=== PATIENT | female | born 1965 | race Caucasian/White ===

== ENCOUNTER → 2016-10-20 | Outpatient (CLI) | payer BC ==
--- NOTE | 2016-10-20 14:32 | RAD ---
DATE: 10/20/2016 EXAM: MAMMO STAR SCREENING BILATERAL HISTORY: Routine screening COMPARISON: 08/13/2015 This study was interpreted with the benefit of Computerized Aided Detection (CAD). FINDINGS: 2-D and 3-D tomosynthesis imaging was performed in CC and MLO projections. The breasts are primarily fatty replaced. No new or enlarging breast densities are seen. No suspicious microcalcifications are evident. IMPRESSION: Stable mammograms without evidence of malignancy. BI-RADS CATEGORY: 2 BENIGN FINDING(S) RECOMMENDED FOLLOW-UP: 12M 12 MONTH FOLLOW-UP PQRS compliance statement: Patient information was entered into a reminder system with a target due date for the next mammogram. Mammography is a sensitive method for finding small breast cancers, but it does not detect them all and is not a substitute for careful clinical examination. A negative mammogram does not negate a clinically suspicious finding and should not result in delay in biopsying a clinically suspicious abnormality. "Our facility is accredited by the [employer]ography [employer]."
== END | disposition home or self-care (01) ==
LOC: MAMMO 13:30
PROVIDERS: ATTEND General Practice
DX: Z12.31 Encounter for screening mammogram for malignant neoplasm of breast (principal)
CPT/HCPCS: 77063; G0202; 77067

== ENCOUNTER → 2016-10-24 | Outpatient (CLI) | payer BC ==
--- NOTE | 2016-10-24 15:55 | RAD ---
CT of the lumbar spine without contrast, 10/24/2016: History: Low back pain radiating into the left hip. Noncontrast scans were obtained with multiplanar reconstructions produced. No fracture or destructive bony lesion is seen. No significant posterior disc bulge or protrusion is seen at L1-2 and L2-3. There are minimal degenerative changes involving the facet joints at these levels. The central spinal canal and neural foramina are well maintained at these levels. At L3-4 there is moderate hypertrophic degenerative change involving the facet joints. There is moderate broad-based posterior disc bulging, more so on the right. There is a prominent posterior spur near the midline in association with this disc bulge. The combination of findings is causing mild narrowing of the central spinal canal and mild inferior foraminal encroachment bilaterally. At L4-5 there is a larger posterior spur in association with broad-based posterior disc bulging. There are extensive degenerative changes involving the facet joints with vacuum disc phenomena and posterior ligamentous thickening. The combination of findings is causing moderate central spinal stenosis and moderately severe bilateral foraminal encroachment. The thecal sac measures approximately 7 mm in AP diameter at the midline. At L5-S1 there are also large posterior spurs in association with broad-based posterior disc bulging. There are moderate degenerative changes involving the facet joints with posterior ligamentous thickening. The combination of findings is causing moderate central spinal stenosis with the thecal sac measuring approximately 6 mm in AP diameter at the midline. There is also moderate bilateral foraminal encroachment due to the spurs. IMPRESSION: 1. Multilevel hypertrophic degenerative change as described above. 2. Large posterior spurs in conjunction with extensive facet joint arthropathy is producing moderate central spinal stenosis and moderate to severe bilateral foraminal encroachment bilaterally at L4-5 and L5-S1. 3. Mild central spinal stenosis at L3-4. PQRS Compliance Statement: One or more of the following individualized dose reduction techniques were utilized for this examination: 1. Automated exposure control 2. Adjustment of the mA and/or kV according to patient size 3. Use of iterative reconstruction technique
== END | disposition home or self-care (01) ==
LOC: CT 13:29
PROVIDERS: ATTEND General Practice
DX: M47.896 Other spondylosis, lumbar region (principal); M48.07 Spinal stenosis, lumbosacral region; M54.42 Lumbago with sciatica, left side
CPT/HCPCS: 72131

== ENCOUNTER → 2016-12-14 | Outpatient (CLI) | payer BC ==
--- NOTE | 2016-12-14 09:43 | RAD ---
Pelvis with left hip, 2 views, 12/14/2016: History: Pain No fracture or dislocation is identified. There is moderate narrowing of the left hip joint with subchondral sclerosis and marginal spurring. The right hip joint is well-maintained with only minimal marginal spurring. IMPRESSION: 1. Moderate osteoarthritis at the left hip joint. 2. No acute abnormality is detected.
== END | disposition home or self-care (01) ==
LOC: DXRAD 08:02
PROVIDERS: ATTEND Family Medicine
DX: M16.12 Unilateral primary osteoarthritis, left hip (principal)
CPT/HCPCS: 73502

== ENCOUNTER → 2017-02-14 | Outpatient (CLI) | payer BC ==
[2017-02-14 14:23] LABS: BASO # 0.1 x10^3/uL (0.0-0.2); BASO % 1 % (0-3); EOS # 0.2 x10^3/uL (0.0-0.7); EOS % 2 % (0-3); HEMATOCRIT 37.8 % (36.0-47.0); HEMOGLOBIN 12.7 g/dL (12.0-15.5); LYMPH # 2.5 x10^3/uL (1.0-4.8); LYMPH % 30 % (24-48); MEAN CORPUSCULAR HEMOGLOBIN 31 pg (25-35); MEAN CORPUSCULAR HGB CONC 34 g/dL (31-37); MEAN CORPUSCULAR VOLUME 92 fL (79-100); MONO # 0.8 x10^3/uL (0.0-1.1); MONO % 10 % (0-9); NEUT # 4.8 x10^3uL (1.8-7.7); NEUT % 58 % (31-73); PLATELET COUNT 284 x10^3/uL (140-400); RED CELL DISTRIBUTION WIDTH 13.4 % (11.5-14.5); WHITE BLOOD COUNT 8.4 x10^3/uL (4.0-11.0)
[2017-02-14 14:32] LABS: BACTERIA,URINE 0 /HPF (0-FEW); BILIRUBIN,URINE NEG (NEG); CLARITY,URINE CLEAR; COLOR,URINE YELLOW; GLUCOSE,URINE NEG (NEG); NITRITE,URINE NEG (NEG); RBC,URINE 0 /HPF (0-2); SQUAMOUS EPITHELIAL CELL,UR OCC /LPF; UROBILINOGEN,URINE 0.2 mg/dL (0.2 mg/dL); WBC,URINE RARE /HPF (0-4)
== END | disposition home or self-care (01) ==
LOC: LAB 13:41
PROVIDERS: ATTEND Anesthesiology Pain Medicine
DX: Z01.818 Encounter for other preprocedural examination (principal)
CPT/HCPCS: 36415; 81001; 85025

== ENCOUNTER 2017-05-04 18:11 | Emergency (ER) | payer BC ==
[~2017-05-04] VITALS: Ht 162.6 cm; Wt 100.0 kg
[2017-05-04 19:10] VITALS: BP 138/85
[2017-05-04] MEDS ORDERED: PHEN-318 PO (19:19)
[2017-05-04] MEDS ORDERED: NITR100C62 PO (19:19)
--- NOTE | 2017-05-04 19:19 | PHYS DOC ---
Past History Past Medical History: UTI Additional Past Medical Histor: current UTIs Past Surgical History: Appendectomy, , Hip Replacement, Hysterectomy Smoking: Quit Greater Than 1 Year Alcohol Use: Occasionally Drug Use: None Adult General Chief Complaint Chief Complaint: URINARY FREQUENCY [facility] This is a pleasant 52-year-old female with a history of recurrent UTIs who presents with dysuria urgency or frequency that began earlier today. She's had a UTI recently with the last several months requiring Pyridium and antibiotics. She is not complaining of any lower back pain, fevers, chills, nausea, vomiting , diarrhea she denies any copious vaginal discharge or bleeding. She's had a hysterectomy and oophorectomy and appendectomy. She just recently had hip surgery within the last several months. She denies any rash joint pain, travel outside the country or trauma. Her pain is improved with Pyridium taken at home several hours prior to arrival Review of Systems Review of Systems Constitutional: Denies fever or chills [] Eyes: Denies change in visual acuity, redness, or eye pain [] HENT: Denies nasal congestion or sore throat [] Respiratory: Denies cough or shortness of breath [] Cardiovascular: No additional information not addressed in HPI [] GI: Denies nausea, vomiting, bloody stools or diarrhea patient does have some abdominal pain described as crampy over the suprapubic region.[] : Patient does have dysuria urgency or frequency without hematuria Musculoskeletal: Denies back pain she does complain of joint pain over the hip temperatures were placed. Integument: Denies rash or skin lesions [] Neurologic: Denies headache, focal weakness or sensory changes [] All other systems were reviewed and found to be within normal limits, except as documented in this note. Allergies Allergies Allergies Coded Allergies Type Severity Reaction Last Updated Verified codeine Allergy Unknown 05/04/17 Yes Physical Exam Physical Exam Constitutional: Well developed, well nourished, no acute distress, non-toxic appearance. [] Cardiovascular:Heart rate regular rhythm, no murmur [] Lungs & Thorax: Bilateral breath sounds clear to auscultation [] Abdomen: Bowel sounds normal, soft, no tenderness, no masses, no pulsatile masses. [] Skin: Warm, dry, no erythema, no rash. [] Back: No tenderness, no CVA tenderness. [] Extremities: No tenderness, no cyanosis, no clubbing, ROM intact, no edema. [] Neurologic: Alert and oriented X 3,] Psychologic: Affect normal, judgement normal, mood normal. [] Current Patient Data Lab Results Laboratory Tests Test 05/04/17 18:36 Urine Collection Type Unknown Urine Color Yellow Urine Clarity Hazy Urine pH 6.0 Urine Specific [place] 1.020 Urine Protein Neg (NEG-TRACE) Urine Glucose (UA) Neg mg/dL (NEG) Urine Ketones (Stick) Trace mg/dL (NEG) Urine Blood Trace (NEG) Urine Nitrite Pos (NEG) Urine Bilirubin Neg (NEG) Urine Urobilinogen Dipstick 0.2 mg/dL (0.2 mg/dL) Urine Leukocyte Esterase Small (NEG) Urine RBC 3-5 /HPF (0-2) Urine WBC >40 /HPF (0-4) Urine Squamous Epithelial Cells Few /LPF Urine Bacteria 0 /HPF (0-FEW) Urine Yeast Present /HPF EKG EKG [] Radiology/Procedures Radiology/Procedures [] Course & Med Decision Making Course & Med Decision Making Pertinent Labs and Imaging studies reviewed. (See chart for details) []My abdominal pain differential includes but not limited to ectopic , UTI, pyonephritis, cholecystitis, cholelithiasis, pancreatitis, appendicitis, small bowel obstruction, large bowel obstruction, diverticulosis, Diverticulum, intussusception, volvulus, irritable bowel disease, Crohn's or ulcerative colitis, considered upon arrival Clearly sHe is not having a with no uterus or ovaries but UTIs possible. Since urinalysis clearly showed signs of infection. She'll be provided a course of Macrobid and Pyridium and asked to follow-up with her [employer] for urogynecology evaluation. My concern recalls around the fact she's had 3 infections and less than 6 months she may have some structural problems with her bladder that may require surgical intervention to help reduce the frequency of infections. At this point I do not believe she get a renal abscess Dragon Disclaimer Dragon Disclaimer This electronic medical record was generated, in whole or in part, using a voice recognition dictation system. Departure Departure: Impression: Primary Impression: Dysuria Additional Impression: UTI (urinary tract infection) Disposition: HOME, SELF-CARE Condition: STABLE Referrals: JOSEPH HERNADEZ DO (PCP) Patient Instructions: Urinary Frequency, Urinary Tract Infection Additional Instructions: discharge: I've spoken with the patient and/or caregivers. I've explained the patient's condition, diagnosis and treatment plan based on information available to me at this time. I've answered the patient's and/or caregivers questions and addressed any concerns. The patient and/or caregivers have a good understanding the patient's diagnosis, condition and treatment plan as can be expected at this point. Vital signs have been stabilized. The patient's condition is stable for discharge from the emergency department. The patient will pursue further outpatient evaluation with her primary care provider or other designated consulting physician as outlined in the discharge instructions. Patient and/or caregivers are agreeable to this plan of care and follow-up instructions have been explained in detail. The patient and/or caregivers have received these instructions in written format and expressed understanding of these discharge instructions. The patient and her caregivers are aware that if any significant change in condition or worsening of symptoms should prompt him to immediately return to this of the closest emergency department. If an emergent department is not readily available I would encourage him to call 911. Scripts Phenazopyridine Hcl (PYRIDIUM) 200 Mg Tablet 200 MG PO TID for 5 Days, #15 TAB Prov: MELANI HARRISON MD 05/04/17 Nitrofurantoin Monohyd/M-Cryst (MACROBID 100 MG CAPSULE) 100 Mg Capsule 1 CAP PO BID, #20 CAP Prov: MELANI HARRISON MD 05/04/17 Problem Qualifiers MELANI HARRISON MD May 04, 2017 19:19
[2017-05-04 19:32] LABS: BILIRUBIN,URINE NEG (NEG); CLARITY,URINE HAZY; COLOR,URINE YELLOW; GLUCOSE,URINE NEG (NEG); NITRITE,URINE POS (NEG); UROBILINOGEN,URINE 0.2 mg/dL (0.2 mg/dL)
[2017-05-04 19:33] LABS: BACTERIA,URINE 0 /HPF (0-FEW); SQUAMOUS EPITHELIAL CELL,UR FEW /LPF; WBC,URINE >40 /HPF (0-4)
[2017-05-04 19:34] LABS: YEAST,URINE PRESENT /HPF
[2017-05-04] MEDS ORDERED: NITROFURANTOIN MONOHYD/M-CRYST 100 MG CAPSULE. PO ONE ×2 (19:56→20:15)
== END 2017-05-04 20:00 | disposition home or self-care (01) ==
LOC: ER 18:11
DX: N39.0 Urinary tract infection, site not specified (principal); Z90.710 Acquired absence of both cervix and uterus; Z90.721 Acquired absence of ovaries, unilateral; Z90.49 Acquired absence of other specified parts of digestive tract; Z87.891 Personal history of nicotine dependence; Z88.5 Allergy status to narcotic agent
CPT/HCPCS: 81001; 87086; 99284

== ENCOUNTER 2017-08-02 00:22 | Emergency (ER) | payer BC ==
[~2017-08-02] VITALS: Ht 162.6 cm; Wt 102.1 kg
[~2017-08-02 00:22] MED LIST: NITR100C62 PO; PHEN-318 PO
[2017-08-02 01:08] LABS: BACTERIA,URINE MANY /HPF (0-FEW); BILIRUBIN,URINE NEG (NEG); CLARITY,URINE CLOUDY; COLOR,URINE YELLOW; GLUCOSE,URINE NEG (NEG); NITRITE,URINE NEG (NEG); RBC,URINE TNTC /HPF (0-2); SQUAMOUS EPITHELIAL CELL,UR FEW /LPF; UROBILINOGEN,URINE 0.2 mg/dL (0.2 mg/dL); WBC,URINE TNTC /HPF (0-4)
[2017-08-02] MEDS ORDERED: cefTRIAXone IM 1 GM VIAL IM ONE (01:30)
[2017-08-02] MEDS ORDERED: PHENAZOPYRIDINE 200 MG TABLET. PO ONE (01:30)
[2017-08-02] MEDS ORDERED: SULF1TAB24 PO (01:32)
[2017-08-02] MEDS ORDERED: TRAM-48 PO (01:32)
[2017-08-02] MEDS ORDERED: PHEN100T82 PO (01:32)
--- NOTE | 2017-08-02 01:33 | PHYS DOC ---
Past History Past Medical History: UTI Additional Past Medical Histor: current UTIs Past Surgical History: Appendectomy, , Hip Replacement, Hysterectomy Smoking: Quit Greater Than 1 Year Alcohol Use: Occasionally Drug Use: None Adult General Chief Complaint Chief Complaint: PAIN ON URINATION HPI HPI 52-year-old female patient with history of recurrent UTI complaining of urinary frequency and dysuria for the last 2 days that getting force for the last 2 hours without fever and chills, nausea and vomiting, abdominal pain. Patient states she has the urge to go to the bathroom but unable to urinate like her usual. Review of Systems Review of Systems Constitutional: Denies fever or chills [] Eyes: Denies change in visual acuity, redness, or eye pain [] HENT: Denies nasal congestion or sore throat [] Respiratory: Denies cough or shortness of breath [] Cardiovascular: No additional information not addressed in HPI [] GI: Denies abdominal pain, nausea, vomiting, bloody stools or diarrhea [] : Reports dysuria and frequency Musculoskeletal: Denies back pain or joint pain [] Integument: Denies rash or skin lesions [] Neurologic: Denies headache, focal weakness or sensory changes [] Endocrine: Denies polyuria or polydipsia [] All other systems were reviewed and found to be within normal limits, except as documented in this note. Current Medications Current Medications Current Medications Medications (Trade) Dose Ordered Sig/Ameya Start Time Stop Time Status Last Admin Dose Admin Ceftriaxone Sodium (Rocephin Im) 1 gm 1X ONCE 08/02/17 01:30 08/02/17 01:31 UNV Phenazopyridine HCl (Pyridium) 200 mg 1X ONCE 08/02/17 01:30 08/02/17 01:31 UNV Allergies Allergies Allergies Coded Allergies Type Severity Reaction Last Updated Verified codeine Allergy Unknown 05/04/17 Yes Physical Exam Physical Exam Constitutional: Well developed, well nourished, mild distress, non-toxic appearance. [] HENT: Normocephalic, atraumatic, bilateral external ears normal, oropharynx moist, no oral exudates, nose normal. [] Eyes: PERRLA, EOMI, conjunctiva normal, no discharge. [] Neck: Normal range of motion, no tenderness, supple, no stridor. [] Cardiovascular:Heart rate regular rhythm, no murmur [] Lungs & Thorax: Bilateral breath sounds clear to auscultation [] Abdomen: Bowel sounds normal, soft, no tenderness, no masses, no pulsatile masses. [] Skin: Warm, dry, no erythema, no rash. [] Back: No tenderness, no CVA tenderness. [] Extremities: No tenderness, no cyanosis, no clubbing, ROM intact, no edema. [] Neurologic: Alert and oriented X 3, normal motor function, normal sensory function, no focal deficits noted. [] Psychologic: Affect normal, judgement normal, mood normal. [] Current Patient Data Lab Results Laboratory Tests Test 08/02/17 00:35 Urine Collection Type Unknown Urine Color Yellow Urine Clarity Cloudy Urine pH 5.5 Urine Specific [place] 1.020 Urine Protein 100 mg/dl (NEG-TRACE) Urine Glucose (UA) Neg mg/dL (NEG) Urine Ketones (Stick) Neg mg/dL (NEG) Urine Blood Large (NEG) Urine Nitrite Neg (NEG) Urine Bilirubin Neg (NEG) Urine Urobilinogen Dipstick 0.2 mg/dL (0.2 mg/dL) Urine Leukocyte Esterase Large (NEG) Urine RBC Tntc /HPF (0-2) Urine WBC Tntc /HPF (0-4) Urine Squamous Epithelial Cells Few /LPF Urine Bacteria Many /HPF (0-FEW) EKG EKG [] Radiology/Procedures Radiology/Procedures [] Course & Med Decision Making Course & Med Decision Making Pertinent Labs reviewed. (See chart for details) Evaluation of patient in ER showed 52-year-old female patient with history of frequent UTI presented with UTI symptoms. Patient had unremarkable physical exam. Labs showed UTI with hematuria. Patient treated with Rocephin IM and plan discharge patient home with diagnosis of allergic cystitis. [] Dragon Disclaimer Dragon Disclaimer This electronic medical record was generated, in whole or in part, using a voice recognition dictation system. Departure Departure: Impression: Primary Impression: Hemorrhagic cystitis Disposition: HOME, SELF-CARE (At 0130) Condition: IMPROVED Referrals: JOSEPH HERNADEZ DO (PCP) Patient Instructions: Urinary Tract Infection Additional Instructions: Drink plenty of liquids Follow-up with your primary care physician in 3-5 days Return to emergency room if not getting better Scripts Tramadol Hcl (ULTRAM) 50 Mg Tablet 50 MG PO PRN Q6HRS Y for PAIN, #14 TAB Prov: CHANDAN JARRETT MD 08/02/17 Sulfamethoxazole/Trimethoprim (BACTRIM DS TABLET) 1 Each Tablet 1 TAB PO BID, #14 TAB Prov: CHANDAN JARRETT MD 08/02/17 Phenazopyridine Hcl (PYRIDIUM) 100 Mg Tablet 100 MG PO BID, #10 TAB Prov: CHANDAN JARRETT MD 08/02/17 CHANDAN JARRETT MD Aug 02, 2017 01:33
[2017-08-02 01:50] VITALS: BP 122/67
== END 2017-08-02 01:50 | disposition home or self-care (01) ==
LOC: ER 00:22
DX: N30.80 Other cystitis without hematuria (principal); Z87.440 Personal history of urinary (tract) infections; Z87.891 Personal history of nicotine dependence; Z88.5 Allergy status to narcotic agent
CPT/HCPCS: 81001; 87086; 96372; 99284; J0696

== ENCOUNTER 2018-03-03 16:15 | Emergency (ER) | payer BC ==
[~2018-03-03] VITALS: Ht 162.6 cm; Wt 111.1 kg
[~2018-03-03 16:15] MED LIST changes: +PHEN100T82 PO; +SULF1TAB24 PO; +TRAM-48 PO
--- NOTE | 2018-03-03 16:40 | PHYS DOC ---
Past History Past Medical History: Angina, Arthritis, Diabetes, UTI Additional Past Medical Histor: current UTIs Past Surgical History: Appendectomy, , Hip Replacement, Hysterectomy Smoking: Non-smoker, Quit Greater Than 1 Year Alcohol Use: Occasionally Drug Use: None Adult General Chief Complaint Chief Complaint: PAIN ON URINATION [facility] Patient is a 52 year old female who presents with complaining of problem with urination. Patient complaining of urinary frequency and dysuria since this morning with pain in vaginal area after urination. Patient denies fever and chills, nausea and vomiting, diarrhea and constipation. Patient states she gets UTI frequently. Patient is diabetic and did not check her blood sugar today. Review of Systems Review of Systems Constitutional: Denies fever or chills [] Eyes: Denies change in visual acuity, redness, or eye pain [] HENT: Denies nasal congestion or sore throat [] Respiratory: Denies cough or shortness of breath [] Cardiovascular: No additional information not addressed in [facility] [] GI: Denies abdominal pain, nausea, vomiting, bloody stools or diarrhea [] : Reports urinary frequency and dysuria] Musculoskeletal: Denies back pain or joint pain [] Integument: Denies rash or skin lesions [] Neurologic: Denies headache, focal weakness or sensory changes [] Endocrine: Denies polyuria or polydipsia [] All other systems were reviewed and found to be within normal limits, except as documented in this note. Allergies Allergies Allergies Coded Allergies Type Severity Reaction Last Updated Verified codeine Allergy Unknown 05/04/17 Yes Physical Exam Physical Exam Constitutional: Well developed, well nourished, mild distress, non-toxic appearance. [] HENT: Normocephalic, atraumatic Eyes: PERRLA, EOMI, left conjunctival injection , no discharge. [] Neck: Normal range of motion, no tenderness, supple, no stridor. [] Cardiovascular:Heart rate regular rhythm, no murmur [] Lungs & Thorax: Bilateral breath sounds clear to auscultation [] Abdomen: Bowel sounds normal, soft, no tenderness, no masses, no pulsatile masses. [] Skin: Warm, dry, no erythema, no rash. [] Back: No tenderness, no CVA tenderness. [] Extremities: No tenderness, no cyanosis, no clubbing, ROM intact, no edema. [] Neurologic: Alert and oriented X 3, normal motor function, normal sensory function, no focal deficits noted. [] Psychologic: Affect normal, judgement normal, mood normal. [] EKG EKG [] Radiology/Procedures Radiology/Procedures [] Course & Med Decision Making Course & Med Decision Making Pertinent Labs reviewed. (See chart for details) discharge: I've spoken with the patient and/or caregivers. I've explained the patient's condition, diagnosis and treatment plan based on information available to me at this time. I've answered the patient's and/or caregivers questions and addressed any concerns. The patient and/or caregivers have a good understanding the patient's diagnosis, condition and treatment plan as can be expected at this point. Vital signs have been stabilized. The patient's condition is stable for discharge from the emergency department. The patient will pursue further outpatient evaluation with her primary care provider or other designated consulting physician as outlined in the discharge instructions. Patient and/or caregivers are agreeable to this plan of care and follow-up instructions have been explained in detail. The patient and/or caregivers have received these instructions in written format and expressed understanding of these discharge instructions. The patient and her caregivers are aware that if any significant change in condition or worsening of symptoms should prompt him to immediately return to this of the closest emergency department. If an emergent department is not readily available I would encourage him to call 911. Steven Disclaimer Rodon Disclaimer This electronic medical record was generated, in whole or in part, using a voice recognition dictation system. Departure Departure: Impression: Primary Impression: Urinary tract infection Additional Impression: Acute conjunctivitis Disposition: HOME, SELF-CARE (at 1730) Condition: IMPROVED Referrals: CHERI OMALLEY MD (PCP) Patient Instructions: Bacterial Conjunctivitis, Urinary Tract Infection Additional Instructions: Drink plenty of liquids Follow-up with your primary care physician in 3-5 days Return to ER if not getting better Use erythromycin ointment in left eye 4 times a day for 5 days Scripts Phenazopyridine Hcl (PYRIDIUM) 100 Mg Tablet 100 MG PO BID, #10 TAB Prov: CHANDAN JARRETT MD 03/03/18 Ciprofloxacin Hcl (CIPRO) 250 Mg Tablet 1 TAB PO BID, #14 TAB Prov: CHANDAN JARRETT MD 03/03/18 Problem Qualifiers CHANDAN JARRETT MD Mar 03, 2018 16:40
[2018-03-03 17:00] LABS: BACTERIA,URINE FEW /HPF (0-FEW); BILIRUBIN,URINE NEG (NEG); CLARITY,URINE HAZY; COLOR,URINE STRAW; GLUCOSE,URINE NEG (NEG); NITRITE,URINE NEG (NEG); RBC,URINE 0 /HPF (0-2); SQUAMOUS EPITHELIAL CELL,UR OCC /LPF; UROBILINOGEN,URINE 0.2 mg/dL (0.2 mg/dL); WBC,URINE >40 /HPF (0-4)
[2018-03-03] MEDS ORDERED: ERYTHROMYCIN 0.5% OPHTH OINTMENT 1GM TUBE. OS ONE (17:30)
[2018-03-03] MEDS ORDERED: cefTRIAXone IM 1 GM VIAL IM ONE (17:30)
[2018-03-03] MEDS ORDERED: PHEN100T82 PO (17:33)
[2018-03-03] MEDS ORDERED: CIPR250T30 PO (17:33)
[2018-03-03 17:42] VITALS: BP 143/76
== END 2018-03-03 17:41 | disposition home or self-care (01) ==
LOC: ER 16:15
DX: N39.0 Urinary tract infection, site not specified (principal); H10.32 Unspecified acute conjunctivitis, left eye; M19.90 Unspecified osteoarthritis, unspecified site; E11.9 Type 2 diabetes mellitus without complications; Z87.440 Personal history of urinary (tract) infections; Z90.89 Acquired absence of other organs; Z98.890 Other specified postprocedural states; Z87.891 Personal history of nicotine dependence; Z90.710 Acquired absence of both cervix and uterus; Z88.5 Allergy status to narcotic agent
CPT/HCPCS: 81001; 82947; 87086; 96372; 99284; J0696

== ENCOUNTER 2019-07-23 03:44 | Emergency (ER) | payer BC ==
[~2019-07-23] VITALS: Ht 162.6 cm; Wt 106.8 kg
[~2019-07-23 03:44] MED LIST changes: +CIPR250T30 PO
[2019-07-23] MEDS ORDERED: SULF1TAB24 PO (04:05)
[2019-07-23] MEDS ORDERED: TRAM50TA PO (04:05)
--- NOTE | 2019-07-23 04:05 | PHYS DOC ---
Past History Past Medical History: Angina, Arthritis, Diabetes, UTI Additional Past Medical Histor: current UTIs Past Surgical History: Appendectomy, , Hip Replacement, Hysterectomy Smoking: Non-smoker, Quit Greater Than 1 Year Alcohol Use: Occasionally Drug Use: None Adult General Chief Complaint Chief Complaint: FINGER INJURY HPI HPI Patient is a 54-year-old female who presents with complaint of right index finger pain and swelling. Patient reportedly had thought that she had a splinter and started digging at it. She states that it then developed swelling and redness as well as throbbing pain to the finger. She is concerned because she is a diabetic. She denies any fever. She rates pain as moderate.[] Review of Systems Review of Systems Constitutional: Denies fever or chills [] Respiratory: Denies cough or shortness of breath [] Cardiovascular: No additional information not addressed in HPI [] Musculoskeletal: Positive right index finger pain [] Allergies Allergies Allergies Coded Allergies Type Severity Reaction Last Updated Verified codeine Allergy Unknown 05/04/17 Yes Physical Exam Physical Exam Constitutional: Well developed, well nourished, no acute distress, non-toxic appearance. [] Cardiovascular:Heart rate regular rhythm, no murmur [] Lungs & Thorax: Bilateral breath sounds clear to auscultation [] Extremities: Right index finger demonstrates swelling, redness and tenderness along the lateral edge of the nail consistent with paronychia. [] Current Patient Data Vital Signs Vital Signs Date Time Temp Pulse Resp B/P (MAP) Pulse Ox O2 Delivery O2 Flow Rate FiO2 07/23/19 03:45 98.6 92 22 175/90 (118) 97 Room Air EKG EKG [] Radiology/Procedures Radiology/Procedures [] Course & Med Decision Making Course & Med Decision Making Pertinent Labs and Imaging studies reviewed. (See chart for details) [] Dragon Disclaimer Dragon Disclaimer This electronic medical record was generated, in whole or in part, using a voice recognition dictation system. Departure Departure: Impression: Primary Impression: Paronychia Disposition: 01 HOME, SELF-CARE Condition: STABLE Referrals: CHERI OMALLEY MD (PCP) Patient Instructions: Paronychia Scripts Tramadol Hcl (TRAMADOL HCL) 50 Mg Tablet 50 MG PO PRN Q6HRS PRN for PAIN, #12 TAB Prov: SOO HOFF Jr. DO 07/23/19 Sulfamethoxazole/Trimethoprim (BACTRIM DS TABLET) 1 Each Tablet 1 TAB PO BID for infection for 10 Days, #20 TAB 0 Refills Prov: SOO HOFF Jr. DO 07/23/19 SOO HOFF Jr. DO Jul 23, 2019 04:05
[2019-07-23 04:10] VITALS: BP 157/96
[2019-07-23] MEDS ORDERED: SMZ/TMP 800/160MG TABLET. PO ONE ×2 (04:15)
[2019-07-23] MEDS ORDERED: IBUPROFEN 600 MG TABLET. PO ONE ×2 (04:15)
== END 2019-07-23 04:16 | disposition home or self-care (01) ==
LOC: ER 03:44
DX: L03.011 Cellulitis of right finger (principal); R60.9 Edema, unspecified; M79.644 Pain in right finger(s); M19.90 Unspecified osteoarthritis, unspecified site; E11.9 Type 2 diabetes mellitus without complications; Z90.89 Acquired absence of other organs; Z98.890 Other specified postprocedural states; Z90.710 Acquired absence of both cervix and uterus; Z88.6 Allergy status to analgesic agent
CPT/HCPCS: 99283

== ENCOUNTER → 2019-12-31 | Outpatient (CLI) | payer BC ==
[~2019-12-31] MED LIST changes: +ALBU2.5V8 IH; +ALPR1TAB2 PO; +ATOR20TA58 PO; +CARV25TA PO; +CYCL-331 PO; +FLUT1AER IH; +FLUT9.9S NS; +GABA100C81 PO; +HYDR12.572 PO; +IBUP200T44 PO; +IBUP800T19 PO; +INSU100I13 SQ; +LEXAPRO10 MG PO; +LIRA0.6P2 SQ; +LOSA100T14 PO; +METF500T16 PO; +MONT10TA80 PO; +MULT-245 PO; +OMEG1CAP50 PO; +TRAM50TA PO; +VITA50004 PO
[2020-01-09 10:35] VITALS: BP 146/76
== END | disposition home or self-care (01) ==
LOC: SURG 14:13
PROVIDERS: ATTEND Anesthesiology
DX: M47.816 Spondylosis without myelopathy or radiculopathy, lumbar region (principal); G89.29 Other chronic pain; E11.9 Type 2 diabetes mellitus without complications; I10 Essential (primary) hypertension; M19.90 Unspecified osteoarthritis, unspecified site; J45.909 Unspecified asthma, uncomplicated; Z90.710 Acquired absence of both cervix and uterus; Z90.49 Acquired absence of other specified parts of digestive tract; Z88.5 Allergy status to narcotic agent; Z88.8 Allergy status to other drugs, medicaments and biological substances; Z79.899 Other long term (current) drug therapy
CPT/HCPCS: 99213; G0463

== ENCOUNTER → 2020-01-06 | Outpatient (CLI) | payer BC ==
[2019-12-31 14:28] VITALS: BP 129/71
[~2020-01-06] MED LIST changes: -VITA50004 PO
== END ==
LOC: LAB 09:35
PROVIDERS: ATTEND Registered Nurse
DX: Z01.818 Encounter for other preprocedural examination (principal); Z11.59 Encounter for screening for other viral diseases; R52 Pain, unspecified
CPT/HCPCS: 36415; U0003

== ENCOUNTER → 2020-01-09 | Outpatient (CLI) | payer BC ==
[2019-12-31 14:28] VITALS: BP 129/71
[~2020-01-09] MED LIST changes: +BUPIVACAINE MPF 0.25% 10 ML VIAL. ONE; +DEXAMETHASONE SOD PHOS 4 MG/ML VIAL. ONE; +LIDOCAINE 1% PF 30 ML VIAL. ONE; +MIDAZOLAM HCL PF 2 MG/2 ML VIAL. ONE; +VITA50004 PO
== END | disposition home or self-care (01) ==
LOC: SURG 08:31
PROVIDERS: ATTEND Anesthesiology
DX: M47.816 Spondylosis without myelopathy or radiculopathy, lumbar region (principal); F41.9 Anxiety disorder, unspecified; E11.9 Type 2 diabetes mellitus without complications; I10 Essential (primary) hypertension; F32.9 Major depressive disorder, single episode, unspecified; J45.909 Unspecified asthma, uncomplicated; M19.90 Unspecified osteoarthritis, unspecified site; Z90.710 Acquired absence of both cervix and uterus; Z98.890 Other specified postprocedural states; Z79.82 Long term (current) use of aspirin; Z79.899 Other long term (current) drug therapy; Z90.49 Acquired absence of other specified parts of digestive tract; Z79.84 Long term (current) use of oral hypoglycemic drugs
CPT/HCPCS: 64635; 64636; 99152; 99153; J1100; J2001; J2250; J3010; J3490

== ENCOUNTER → 2020-02-04 | Outpatient (CLI) | payer BC ==
[2020-02-04 09:48] VITALS: BP 122/77
== END | disposition home or self-care (01) ==
LOC: SURG 07:46
PROVIDERS: ATTEND Anesthesiology
DX: M47.816 Spondylosis without myelopathy or radiculopathy, lumbar region (principal); M54.5 Low back pain; Z20.828 Contact with and (suspected) exposure to other viral communicable diseases; F41.9 Anxiety disorder, unspecified; J45.909 Unspecified asthma, uncomplicated; F32.9 Major depressive disorder, single episode, unspecified; E11.9 Type 2 diabetes mellitus without complications; I10 Essential (primary) hypertension; M19.90 Unspecified osteoarthritis, unspecified site; Z88.6 Allergy status to analgesic agent; Z88.8 Allergy status to other drugs, medicaments and biological substances; Z87.891 Personal history of nicotine dependence; Z91.048 Other nonmedicinal substance allergy status; Z79.82 Long term (current) use of aspirin; Z79.84 Long term (current) use of oral hypoglycemic drugs; Z79.899 Other long term (current) drug therapy; Z82.61 Family history of arthritis; Z82.49 Family history of ischemic heart disease and other diseases of the circulatory system; Z90.49 Acquired absence of other specified parts of digestive tract; Z98.890 Other specified postprocedural states; Z90.710 Acquired absence of both cervix and uterus
CPT/HCPCS: 64635; 64636; 99152; 99153; J1100; J2001; J2250; J3010; J3490; U0003

== ENCOUNTER → 2020-02-18 | Outpatient (CLI) | payer BC ==
[~2020-02-18] MED LIST changes: +0.9 % SODIUM CHLORIDE 10 ML VIAL. ONE; +DEXAMETHASONE SOD PHOS 10 MG/ML VIAL. ONE; -DEXAMETHASONE SOD PHOS 4 MG/ML VIAL. ONE; +IOHEXOL 300 MG/ML 50 ML VIAL. ONE; -MIDAZOLAM HCL PF 2 MG/2 ML VIAL. ONE
[2020-02-18 10:01] VITALS: BP 142/93
== END | disposition home or self-care (01) ==
LOC: SURG 08:54
PROVIDERS: ATTEND Anesthesiology
DX: M54.16 Radiculopathy, lumbar region (principal); I10 Essential (primary) hypertension; E11.9 Type 2 diabetes mellitus without complications; Z98.890 Other specified postprocedural states; Z79.899 Other long term (current) drug therapy; Z87.891 Personal history of nicotine dependence; Z88.5 Allergy status to narcotic agent; Z88.8 Allergy status to other drugs, medicaments and biological substances; Z79.84 Long term (current) use of oral hypoglycemic drugs
CPT/HCPCS: 64483; 64484; J1100; J2001; J3490; Q9967

== ENCOUNTER → 2020-06-21 | Outpatient (CLI) | payer BC ==
[2020-02-18 10:01] VITALS: BP 142/93
[~2020-06-21] MED LIST changes: -0.9 % SODIUM CHLORIDE 10 ML VIAL. ONE; -BUPIVACAINE MPF 0.25% 10 ML VIAL. ONE; -DEXAMETHASONE SOD PHOS 10 MG/ML VIAL. ONE; -IOHEXOL 300 MG/ML 50 ML VIAL. ONE; -LIDOCAINE 1% PF 30 ML VIAL. ONE
--- NOTE | 2020-06-24 08:49 | RAD ---
DATE: 06/21/2020 11:30 AM EXAM: MAMMO STAR SCREENING BILATERAL HISTORY: Screening COMPARISON: 05/23/2019 Bilateral CC and MLO views of the breasts were performed. Bilateral breast tomosynthesis was performed in CC and MLO projections. This study was interpreted with the benefit of Computerized Aided Detection (CAD). FINDINGS: Breast Density: FATTY The Breast Parenchyma is primarily fatty replaced. Breast parenchyma level density A. No suspicious masses, microcalcifications or architectural distortion is present to suggest malignancy in either breast. The visualized axillae are unremarkable. IMPRESSION: No mammographic evidence of malignancy. BI-RADS CATEGORY: 1 NEGATIVE RECOMMENDED FOLLOW-UP: 12M 12 MONTH FOLLOW-UP Annual screening mammography is recommended, unless clinically indicated sooner based on symptoms or change in physical exam. PQRS compliance statement: Patient information was entered into a reminder system with a target due date for the next mammogram. Mammography is a sensitive method for finding small breast cancers, but it does not detect them all and is not a substitute for careful clinical examination. A negative mammogram does not negate a clinically suspicious finding and should not result in delay in biopsying a clinically suspicious abnormality. "Our facility is accredited by the [employer]ammography [employer]."
== END ==
LOC: MAMMO 11:22
PROVIDERS: ATTEND Family Medicine
DX: Z12.31 Encounter for screening mammogram for malignant neoplasm of breast (principal)
CPT/HCPCS: 77063; 77067

== ENCOUNTER 2020-12-07 14:01 | Emergency (ER) | payer BC ==
[~2020-12-07] VITALS: Ht 162.6 cm; Wt 106.8 kg
[2020-12-07 14:07] VITALS: BP 152/78
[2020-12-07] MEDS ORDERED: DEXAMETHASONE 4 MG TABLET PO ONE (14:45)
[2020-12-07] MEDS ORDERED: oxyCODONE/APAP 5/325 1 TAB TABLET PO ONE (14:45)
[2020-12-07] MEDS ORDERED: ORPHENADRINE CITRATE 60 MG/2 ML VIAL. IM ONE (14:45)
[2020-12-07] MEDS ORDERED: OXYC5TAB4 PO (14:53)
[2020-12-07] MEDS ORDERED: ORPH-16 PO (14:53)
--- NOTE | 2020-12-07 14:53 | PHYS DOC ---
Past History Past Medical History: Angina, Arthritis, Diabetes, UTI Past Surgical History: Appendectomy, , Hip Replacement, Hysterectomy Smoking: Non-smoker, Quit Greater Than 1 Year Alcohol Use: Occasionally Drug Use: None General Adult EDM: Chief Complaint: HIP PAIN HPI: HPI: 55-year-old female presents with report of left hip pain which is worse with range of motion that started this morning upon waking. Patient reports she is currently in the process of moving her household and has been packing and lifting boxes. Patient reports today attempted to use her leg is bruised some significant pain and stiffness to the limb. Patient denies taking any pain medication prior to arrival. Reports history of prior surgical repair to hip. Review of Systems: Review of Systems: Constitutional: Denies fever or chills Eyes: Denies redness or eye pain HENT: Denies nasal congestion or sore throat Respiratory: Denies cough or shortness of breath Cardiovascular: Denies chest pain or palpitations GI: Denies abdominal pain, nausea, or vomiting : Denies dysuria or hematuria Musculoskeletal: Denies back pain; reports left hip pain Integument: Denies rash or skin lesions Neurologic: Denies headache, focal weakness or sensory changes Complete systems were reviewed and found to be within normal limits, except as documented in this note. Current Medications: Current Meds: Current Medications Medications (Trade) Dose Ordered Sig/Ameya Start Time Stop Time Status Last Admin Dose Admin Dexamethasone (Decadron) 10 mg 1X ONCE 12/07/20 14:45 12/07/20 14:46 Orphenadrine Citrate (Norflex) 60 mg 1X ONCE 12/07/20 14:45 12/07/20 14:46 Oxycodone/ Acetaminophen (Percocet 5/325) 1 tab 1X ONCE 12/07/20 14:45 12/07/20 14:46 Allergies: Allergies: Allergies Coded Allergies Type Severity Reaction Last Updated Verified codeine Allergy Unknown 01/09/20 Yes morphine Allergy Unknown 01/09/20 Yes Physical Exam: PE: Constitutional: Well developed, well nourished, no acute distress, non-toxic appearance HENT: Normocephalic, atraumatic Eyes: Conjunctiva normal, no discharge Neck: Normal range of motion, supple Lungs & Thorax: No respiratory distress, equal chest rise and fall Abdomen: Soft, no tenderness; pelvis stable and nontender Skin: Warm, dry, no erythema, no rash Back: No tenderness, no CVA tenderness Extremities: Left femoral head/groin tenderness, ROM decreased secondary to pain, no deformity, left lower extremity neurovascularly intact, no edema Neurologic: Alert and oriented X 3, normal motor function, normal sensory function, no focal deficits noted Psychologic: Affect normal, judgment normal Current Patient Data: Vital Signs: Vital Signs Date Time Temp Pulse Resp B/P (MAP) Pulse Ox O2 Delivery O2 Flow Rate FiO2 12/07/20 14:07 97.9 85 16 152/78 (102) 98 Room Air EKG: EKG: [] Radiology/Procedures: Radiology/Procedures: PROCEDURE: HIP LEFT 2V WITH PELVIS XR BILATERAL HIP (WITH OR WITHOUT PELVIS) LEFT 2 VIEWS History: Reason: pain / Spl. Instructions: / History: Technique: AP view the pelvis and 2 additional views of the left hip. Comparison: December 14, 2016 Findings: Bilateral hip arthroplasties. No dislocation. No acute fracture. Lower lumbar spondylosis. Generator pack projecting over the left pelvis is noted. Impression: 1. No acute osseous abnormality. 2. Bilateral hip arthroplasties. Electronically signed by: Peewee García DO (12/07/2020 3:19 PM) [id number] Heart Score: C/O Chest Pain: N/A Course & Med Decision Making: Course & Med Decision Making Pertinent Imaging studies reviewed. (See chart for details) Patient with HPI and physical exam concerning for hip strain. Symptomatic treatment provided including ice pack. X-ray without acute fracture/dislocation. Patient stable for discharge with outpatient follow-up with PCP/orthopedics. Orthopedic referral provided. Discussed findings and plan with patient and family, who acknowledge understanding and agreement. Steven Disclaimer: Steven Disclaimer: This electronic medical record was generated, in whole or in part, using a voice recognition dictation system. Departure Departure: Impression: Primary Impression: Strain of left hip and thigh Qualified Codes: S76.012A - Strain of muscle, fascia and tendon of left hip, initial encounter; S76.912A - Strain of unspecified muscles, fascia and tendons at thigh level, left thigh, initial encounter Disposition: HOME / SELF CARE / HOMELESS Condition: STABLE Referrals: CHERI OMALLEY MD (PCP) JAYLA ZAPATA MD Patient Instructions: Hip Pain, Muscle Strain, [id number] Additional Instructions: ICE area of discomfort 20 min on then leave off next 20 mins. Repeat several times daily for next few days. Scripts Oxycodone Hcl (OXYCODONE HCL IMMED.RELEASE ) 5 Mg Tablet 0.5-1 TAB PO PRN Q6HRS PRN for PAIN, #10 TAB Prov: DANNY SIMMONS DO 12/07/20 Orphenadrine Citrate (ORPHENADRINE CITRATE) 100 Mg Tablet.er 1 TAB PO BID PRN for MUSCLE PAIN, #14 TAB 0 Refills Prov: DANNY SIMMONS DO 12/07/20 DANNY SIMMONS DO Dec 07, 2020 14:53
--- NOTE | 2020-12-07 15:22 | RAD ---
XR BILATERAL HIP (WITH OR WITHOUT PELVIS) LEFT 2 VIEWS History: Reason: pain / Spl. Instructions: / History: Technique: AP view the pelvis and 2 additional views of the left hip. Comparison: December 14, 2016 Findings: Bilateral hip arthroplasties. No dislocation. No acute fracture. Lower lumbar spondylosis. Generator pack projecting over the left pelvis is noted. Impression: 1. No acute osseous abnormality. 2. Bilateral hip arthroplasties. Electronically signed by: Peewee García DO (12/07/2020 3:19 PM) [id number]
== END 2020-12-07 15:23 | disposition home or self-care (01) ==
LOC: ER 14:01
DX: S76.012A Strain of muscle, fascia and tendon of left hip, initial encounter (principal); M19.90 Unspecified osteoarthritis, unspecified site; E11.9 Type 2 diabetes mellitus without complications; Z87.440 Personal history of urinary (tract) infections; Z87.891 Personal history of nicotine dependence; Z96.649 Presence of unspecified artificial hip joint; Z88.5 Allergy status to narcotic agent; X50.9XXA Other and unspecified overexertion or strenuous movements or postures, initial encounter; Y93.89 Activity, other specified; Y92.89 Other specified places as the place of occurrence of the external cause; Y99.8 Other external cause status
CPT/HCPCS: 73502; 96372; 99283; J2360; J8540

== ENCOUNTER → 2021-11-02 | Outpatient (CLI) | payer BC ==
[~2021-11-02] MED LIST changes: -CYCL-331 PO; +CYCL10TA19 PO; +ORPH-16 PO; +OXYC5TAB4 PO
--- NOTE | 2021-11-02 16:11 | RAD ---
Bilateral digital screening 2-D and 3-D (digital breast tomosynthesis) mammogram: Reason for examination: Routine screening. Comparison: Mammograms from 06/21/2020 and 05/23/2019. Interpretation was made with the benefit of CAD. FINDINGS: Breast density: Category A. Breast tissue is almost entirely fatty. No suspicious breast mass, malignant appearing calcifications, or architectural distortion is seen. T here are very small oval described masses in both breasts that are seen on the 3-D images which are l ikely due to cysts. IMPRESSION: No evidence of malignancy. Assessment: BI-RADS 2. Benign findings. Recommendation: Routine screening mammograms. The patient will receive a letter with the results in the mail. Patient information will be entered i nto the mammography reminder system with a target recall date for the next mammogram. A reminder mercy [facility] will be generated. Electronically signed by: Ayesha Canela MD (11/02/2021 4:09 PM) [id number]
== END ==
LOC: MAMMO 10:57
PROVIDERS: ATTEND Family Medicine
DX: Z12.31 Encounter for screening mammogram for malignant neoplasm of breast (principal)
CPT/HCPCS: 77063; 77067